=== PATIENT | female | born 1980 | race Caucasian/White ===

== ENCOUNTER 2021-01-14 15:59 | Emergency (ER) | payer SELFPAY ==
[2021-01-14 18:34] LABS: BASOPHIL 0.4 % (0-2); EOSINOPHIL 1.8 % (0-5); HCT 46.5 % (37.0-47.0); HGB 15.8 g/dl (12.5-16.0); LYMPHOCYTE 28.9 % (15-48); MCH 31.9 pg (25.0-31.0); MCV 93.9 fL (78.0-100.0); MONOCYTE 8.6 % (0-12); MPV 11.2 fL (6.0-9.5); NEUTROPHIL 59.9 % (41-80); NRBC 0; PLT 174 K/uL (150-400); RBC 4.95 M/uL (4.20-5.40); RDW 11.4 % (11.5-14.0); WBC 7.8 K/uL (4.0-10.5)
[2021-01-14 18:50] LABS: BUN/CREAT RATIO (CALC) 11.7 RATIO; CREATININE 0.77 mg/dL (0.51-0.95); POTASSIUM 3.9 mmol/L (3.5-5.1)
[2021-01-14 19:30] LABS: BILIRUBIN NEGATIVE (NEGATIVE); BLOOD NEGATIVE Ery/uL (NEGATIVE); CLARITY CLEAR (CLEAR); COLOR YELLOW (YELLOW); GLUCOSE (U) NORMAL (NORMAL); LEUKOCYTES NEGATIVE Leu/uL (NEGATIVE); NITRITE NEGATIVE (NEGATIVE); PROTEIN NEGATIVE (NEGATIVE); SPECIFIC GRAVITY 1.025 (1.001-1.030); UROBILINOGEN 0.2 mg/dL (0.2-1.0)
[2021-01-14] MEDS ORDERED: TESSALON PERLE100 MG PO (20:36)
== END 2021-01-14 20:50 | disposition home or self-care (01) ==
LOC: FER 15:59
PROVIDERS: Nurse Practitioner Family
DX: U07.1 COVID-19 (principal); I10 Essential (primary) hypertension; F17.210 Nicotine dependence, cigarettes, uncomplicated; Z88.5 Allergy status to narcotic agent; Z23 Encounter for immunization
CPT/HCPCS: 36415; 71045; 80048; 81003; 85025; J7030; M0243; Q0244